=== PATIENT | female | born 1995 ===

== ENCOUNTER → 2018-07-10 | Outpatient (CLI) | payer OTHER | LOC: GIMAGING 13:53 | PROVIDERS: ATTEND Family Medicine | DX: M51.37 Other intervertebral disc degeneration, lumbosacral region (principal); K59.00 Constipation, unspecified; Z97.5 Presence of (intrauterine) contraceptive device | CPT/HCPCS: 72100-PO ==

== ENCOUNTER → 2018-08-01 | Outpatient (CLI) | payer OTHER | LOC: GIMAGING 08:38 → EDSTATUS 16:38 | PROVIDERS: ATTEND Family Medicine | DX: J98.4 Other disorders of lung (principal) | CPT/HCPCS: 71046-PO ==